=== PATIENT | male | born 1965 | race African-American/Black ===

== ENCOUNTER 2017-07-16 17:45 | Emergency (ER) | payer OTHER ==
[2017-07-16 18:05] VITALS: BP 131/70
[2017-07-16] MEDS ORDERED: Albuterol 2.5 MG/3 ML NEB.SOL* (0.083%) INH ONE (18:13)
[2017-07-16] MEDS ORDERED: PrednisoLONE LIQ 3 MG/ML* 15 MG/5 ML UDC PO ONE (18:13)
--- NOTE | 2017-07-16 18:19 | UC ---
Respiratory Complaint HPI - HPI Summary HPI Summary: 51 year old male presents with complains cough, chest congestion, and sinus congestion. - History of Current Complaint Chief Complaint: UCRespiratory Stated Complaint: CHEST CONGESTION,COUGH Time Seen by Provider: 07/16/17 17:59 Hx Obtained From: Patient Onset/Duration: Sudden Onset Severity Initially: Moderate Severity Currently: Moderate Pain Scale Used: 0-10 Numeric - 5 Alleviating Factors: Bronchodilator Associated Signs And Symptoms: Positive: Wheezing - Allergies/Home Medications Allergies/Adverse Reactions: Allergies Allergy/AdvReac Type Severity Reaction Status Date / Time No Known Allergies Allergy Verified 07/16/17 18:05 Home Medications: Home Medications Dextromethorphan-Phenylephrine [Vicks Dayquil Cold & Flu] 1 cap PO PRN 07/16/17 [History] Glucosamine-Chondroitin [Glucosamine & Chondroitin 500-400 mg] 1 cap PO DAILY [History Confirmed 07/16/17] Ibuprofen TAB* [Advil TAB*] 600 mg PO PRN 07/16/17 [History] Zklcfqrpepsso-Ewxbzmhpmi-[id number] [Nyquil Severe Cold/Flu 5-6.25-10-325 mg/15Ml] 1 liq PO PRN 07/16/17 [History] PMH/Surg Hx/FS Hx/Imm Hx Previously Healthy: Yes - Surgical History Surgical History: Yes Surgery Procedure, Year, and Place: vasectomy; wisdom tooth - Family History Known Family History: Positive: None - Social History Alcohol Use: None Alcohol Amount: NO ETOH 2014 Substance Use Type: None Smoking Status (MU): Never Smoked Tobacco Have You Smoked in the Last Year: No Review of Systems Constitutional: Negative Skin: Negative Eyes: Negative ENT: Negative Respiratory: Cough Cardiovascular: Negative Gastrointestinal: Negative Genitourinary: Negative Motor: Negative Neurovascular: Negative Musculoskeletal: Negative Neurological: Negative Psychological: Negative All Other Systems Reviewed And Are Negative: Yes Physical Exam Triage Information Reviewed: Yes Vital Signs: Initial Vital Signs Temp 39.3 C 07/16/17 18:01 Pulse 122 07/16/17 18:01 Resp 18 07/16/17 18:01 BP 131/70 07/16/17 18:01 Pulse Ox 98 07/16/17 18:01 Vital Signs Reviewed: Yes Eye Exam: Normal ENT Exam: Normal Dental Exam: Normal Neck exam: Normal Neck: Positive: 1 Respiratory: Positive: Decreased breath sounds Cardiovascular Exam: Normal Abdominal Exam: Normal Musculoskeletal Exam: Normal Neurological Exam: Normal Psychological Exam: Normal Skin Exam: Normal UC Diagnostic Evaluation - Laboratory O2 Sat by Pulse Oximetry: 98 Respiratory Course/Dx - Differential Dx/Diagnosis Provider Diagnoses: chest congestion. cough Discharge - Discharge Plan Condition: Stable Disposition: OTHER Discharge Disposition Comment: patient suggested to go to the er Prescriptions: Albuterol HFA INHALER* [Ventolin HFA Inhaler*] 1 puff INH Q6H PRN #1 mdi PRN Reason: Wheezing Azithromyxin DIANE (NF) [Z-Diane (Zithromax) 250 mg tabs #6] 2 tab PO .TODAY, THEN 1 DAILY #6 tab Methylprednisolone [Medrol Dosepak 4 MG*] 4 mg PO .SEE DIANE INSTRUCTION #21 tab Patient Education Materials: Acute Cough (ED), Wheezing (ED) Referrals: Gilmer Luna MD [Primary Care Provider] - Additional Instructions: patient suggested to go to the er for elevated temp > 103 with tylenol.
[2017-07-16] MEDS ORDERED: predniSONE TAB* 20 MG PO ONE (18:23)
--- NOTE | 2017-07-16 18:33 | RAD ---
INDICATION: Cough and congestion COMPARISON: None TECHNIQUE: PA and lateral views of the chest were obtained. FINDINGS: The heart and mediastinum are normal in size and contour. The lungs are grossly clear. There is no evidence of large pleural effusion. Visualized bones are normal for the patient's age. There is no radiographic evidence of free air beneath the diaphragm IMPRESSION: No radiographic evidence of acute cardiopulmonary disease.
== END 2017-07-16 18:55 ==
LOC: UCEAST 17:45
DX: R05 Cough (principal); R09.89 Other specified symptoms and signs involving the circulatory and respiratory systems
CPT/HCPCS: 71020; 99212; G0463; J7512

== ENCOUNTER 2017-07-16 19:12 | Emergency (ER) | payer OTHER ==
[2017-07-16] MEDS ORDERED: Clarithromycin TAB* 500 MG PO ONE (20:13)
[2017-07-16] MEDS ORDERED: Oseltamivir CAP* 75 MG PO ONE (21:14)
[2017-07-16] MEDS ORDERED: guaiFENesin/CODIEN 100MG-10MG* 5 ML UDC PO ONE (21:14)
--- NOTE | 2017-07-16 21:22 | ED ---
Opal Vazquez Julia, scribed for Maico Shipley MD on 07/16/17 at 1950 . HPI Febrile Illness - HPI Summary HPI Summary: This patient is a 51 year old M BIBA to [facility] accompanied by his with a chief complaint of fever since yesterday morning. The patient rates the pain 5/ 10 in severity. Symptoms aggravated by nothing. Symptoms alleviated by nothing. Patient reports a productive cough with chest pain. reports previous episodes of similar symptoms that have worsened today. Patient reports that he is currently feeling better. - History of Current Complaint Chief Complaint: EDFever Time Seen by Provider: 07/16/17 19:47 Hx Obtained From: Patient, Family/Backup Operator Onset/Duration: Started Days Ago Timing: Constant Pain Intensity: 5 Pain Scale Used: 0-10 Numeric Aggravating Factors: Nothing Alleviating Factors: Nothing Associated Signs and Symptoms: Other: - productive cough with chest pain - Allergy/Home Medications Allergies/Adverse Reactions: Allergies Allergy/AdvReac Type Severity Reaction Status Date / Time No Known Allergies Allergy Verified 07/16/17 18:05 PMH/Surg Hx/FS Hx/Imm Hx Cardiovascular History: Denies: Hx Hypertension Respiratory History: Reports: Other Respiratory Problems/Disorders - HX PNEUMONIA - Surgical History Surgery Procedure, Year, and Place: vasectomy; wisdom tooth Infectious Disease History: No Infectious Disease History: Denies: Hx Clostridium Difficile, Hx Hepatitis, Hx Human Immunodeficiency Virus (HIV), Hx of Known/Suspected MRSA, Hx Shingles, Hx Tuberculosis, Hx Known/ Suspected VRE, Hx Known/Suspected VRSA, History Other Infectious Disease, Traveled Outside the [place] in Last 30 Days - Family History Known Family History: Negative: Diabetes - Social History Alcohol Use: None Alcohol Amount: NO ETOH 2014 Hx Substance Use: No Substance Use Type: Reports: None Hx Tobacco Use: No Smoking Status (MU): Never Smoked Tobacco Have You Smoked in the Last Year: No Review of Systems Positive: Fever Positive: Chest Pain Positive: Cough - productive All Other Systems Reviewed And Are Negative: Yes Physical Exam - Summary Physical Exam Summary: Appearance: The patient is well-nourished in no acute distress and in no acute pain. Skin: The skin is warm and dry and skin color reflects adequate perfusion. HEENT: The head is normocephalic and atraumatic. The pupils are equal and reactive. The conjunctivae are clear and without drainage. Nares are patent and without drainage. Mouth reveals moist mucous membranes and the throat is without erythema and exudate. The external ears are intact. The ear canals are patent and without drainage. The tympanic membranes are intact. Neck: the neck is supple with full range of motion and non-tender. There are no carotid bruits. There is no neck vein distension. Respiratory: Chest is non-tender. Upper airway sounds are coarse. Cardiovascular: Heart is tachycardic with regular rhythm. There is no murmur or rub auscultated. There is no peripheral edema and pulses are symmetrical and equal. Abdomen: The abdomen is soft and non-tender. There are normal bowel sounds heard in all four quadrants and there is no organomegaly palpated. Musculoskeletal: There is no back tenderness noted. Extremities are non-tender with full range of motion. There is good capillary refill. There is no peripheral edema or calf tenderness elicited. Neurological: Patient is alert and oriented to person, place and time. The patient has symmetrical motor strength in all four extremities. Cranial nerves are grossly intact. Deep tendon reflexes are symmetrical and equal in all four extremities. Psychiatric: The patient has an appropriate affect and does not exhibit any anxiety or depression. Triage Information Reviewed: Yes Vital Signs On Initial Exam: Initial Vitals Temp Pulse Resp BP Pulse Ox 99.1 F 116 20 000/00 97 07/16/17 19:14 07/16/17 19:14 07/16/17 19:14 07/16/17 19:14 07/16/17 19:14 Vital Signs Reviewed: Yes - [place] Coma Scale Coma Scale Total: 15 Diagnostics - Vital Signs Vital Signs Temp Pulse Resp BP Pulse Ox 07/16/17 19:38 104 9 94 07/16/17 19:37 122/69 07/16/17 19:14 99.1 F 116 20 000/00 97 - Laboratory Lab Results: Lab Results 07/16/17 Range/Units 20:33 Influenza A (Rapid) Positive H (Negative) Influenza B (Rapid) Negative (Negative) Lab Statement: Any lab studies that have been ordered have been reviewed, and results considered in the medical decision making process. Course/Dx - Course Course Of Treatment: Mr. Bryson felt better when he arrived in the ED. He was not wheezing, borderline tachycardic and his SPO2 was in the mid 90's. He was found to be positive for influenza A and will be treated with tamiflu, guaifenesin with codeine and the inhaler he already has. - Diagnoses Provider Diagnoses: Influenza A Discharge - Discharge Plan Condition: Stable Disposition: HOME Referrals: Gilmer Luna MD [Primary Care Provider] - The documentation as recorded by the Opal pisano Julia accurately reflects the service I personally performed and the decisions made by me, Maico Shipley MD.
[2017-07-16 22:03] VITALS: BP 138/80
== END 2017-07-16 22:28 | disposition home or self-care (01) ==
LOC: ED 19:12
DX: J11.1 Influenza due to unidentified influenza virus with other respiratory manifestations (principal)
CPT/HCPCS: 87502; 99283; A9270-GY

== ENCOUNTER 2018-08-01 13:18 | Emergency (ER) | payer OTHER ==
[2018-08-01 13:26] VITALS: BP 152/83
--- NOTE | 2018-08-01 13:26 | UC ---
Respiratory Complaint HPI - HPI Summary HPI Summary: 52 y/o male presents to the urgent care c/o productive cough w/ yellowish phlegm for the past 3 weeks. Pt reports symptoms started w/ a common cold over the end of year. Pt states he had a similar symptoms last year at the same time and Dx w/ Asthma exacerbation and bronchitis. He has not had any wheezing. He has been taking Nyquill PO to alleviate symptoms. Pt states +PND and cough is keeping him awake at night time for the past 3 days. Pt deneis fever SOB, chest pain, abdominal pain, N/V/D - History of Current Complaint Stated Complaint: CONGESTED,COUGH Time Seen by Provider: 08/01/18 13:23 Hx Obtained From: Patient Onset/Duration: Gradual Onset, Lasting Weeks - 3 weeks, Still Present, Worse Since - 3 days Timing: Intermittent Episodes Severity Initially: Mild Severity Currently: Moderate Pain Intensity: 0 Pain Scale Used: 0-10 Numeric Character: Cough: Productive, Sputum Description: - yellowish Aggravating Factors: Recumbent Position Alleviating Factors: OTC Meds Associated Signs And Symptoms: Positive: URI, Nasal Congestion, Sinus Discomfort. Negative: Fever, Chills, Wheezing - Risk Factors Pulmonary Embolism Risk Factors: Negative Cardiac Risk Factors: Negative Pseudomonas Risk Factors: Negative Tuberculosis Risk Factors: Negative - Allergies/Home Medications Allergies/Adverse Reactions: Allergies Allergy/AdvReac Type Severity Reaction Status Date / Time No Known Allergies Allergy Verified 08/01/18 13:26 Home Medications: Home Medications Glucosam/Chondr/Collagn/Hyalur [Glucosamine & Chondroitin Cap] 1 cap PO DAILY [History Confirmed 08/01/18] PMH/Surg Hx/FS Hx/Imm Hx Previously Healthy: Yes Endocrine History: Dyslipidemia Respiratory History: Asthma, Bronchitis - Surgical History Surgical History: Yes Surgery Procedure, Year, and Place: vasectomy; wisdom tooth - Family History Known Family History: Positive: None - Pt denies FMHX Negative: Diabetes - Social History Occupation: Employed Full-time Lives: With Family Alcohol Use: None Alcohol Amount: NO ETOH 2014 Substance Use Type: None Smoking Status (MU): Never Smoked Tobacco Have You Smoked in the Last Year: No Review of Systems All Other Systems Reviewed And Are Negative: Yes Constitutional: Positive: Negative Skin: Positive: Negative Eyes: Positive: Negative ENT: Positive: Nasal Discharge - yellowish, Sinus Congestion Respiratory: Positive: Cough - productive w/ yellowish phlegm Cardiovascular: Positive: Negative Gastrointestinal: Positive: Negative Genitourinary: Positive: Negative Motor: Positive: Negative Neurovascular: Positive: Negative Musculoskeletal: Positive: Negative Neurological: Positive: Negative Psychological: Positive: Negative Is Patient Immunocompromised?: No Physical Exam - Summary Physical Exam Summary: Vital Signs Reviewed: Yes General: well developed, well nourished male sitting in the examining table w/o any apparent distress Eyes: Positive: Conjunctiva Clear - PERRLA, EOMI, fundi grossly normal ENT: Positive: Normal ENT inspection, Hearing grossly normal, Pharynx normal, Nasal congestion - edematous and erythematous nasal mucosa, Nasal drainage - yellowish drainage, TMs normal. Negative: Tonsillar swelling, Tonsillar exudate Neck: Positive: Supple, Nontender, No Lymphadenopathy Respiratory: no orthopnea or dyspnea. Able to speak in full sentences, no retractions or accessory muscle use, no tripod position, stridor, or head bobbing. Positive breath sounds bilaterally. Mild posterior upper lungs w/ rhonchi, no wheezes, no crackles or rales. Cardiovascular: Positive: RRR, No Murmur, Pulses Normal, Brisk Capillary Refill Abdomen Description: Positive: Nontender, No Organomegaly, Soft. Negative: CVA Tenderness (R), CVA Tenderness (L) Bowel Sounds: Positive: Present Musculoskeletal Exam: Normal Musculoskeletal: Positive: Strength Intact, ROM Intact, No Edema Neurological Exam: Normal Psychological Exam: Normal Skin Exam: Normal Triage Information Reviewed: Yes Respiratory Course/Dx - Course Course Of Treatment: 52 y/o male presents to the urgent care c/o productive cough w/ yellowish phlegm for the past 3 weeks. Pt reports symptoms started w/ a common cold over the end of year. Pt states he had a similar symptoms last year at the same time and Dx w/ Asthma exacerbation and bronchitis. He has not had any wheezing. He has been taking Nyquill PO to alleviate symptoms. Pt states +PND and cough is keeping him awake at night time for the past 3 days. Pt deneis fever SOB, chest pain, abdominal pain, N/V/D. Hx obtained. Pt with Acute bronchitis on examination, O2Sat:98% . Pt Rx Augmentin PO and Tessalon POto alleviate symptoms. Pt advised to increase fluid intake and eat well. if not improvement or worsening of symptoms to return to the urgent care or f/u with PCP for further management. Pt's BP is elevated today advised to decrease salt in diet, monitor BP and f/u with PCP for further management. D/C instructions explaiend. Pt understood and agreed with plan of care. - Differential Dx/Diagnosis Differential Diagnosis/HQI/PQRI: Asthma, Bronchitis, Influenza, Laryngitis, Lower Resp Infection, Sinusitis Provider Diagnosis: Bronchitis, Cough, Elevated BP without diagnosis of hypertension Discharge - Sign-Out/Discharge Documenting (check all that apply): Patient Departure - D/C home All imaging exams completed and their final reports reviewed: No Studies - Discharge Plan Condition: Stable Disposition: HOME Prescriptions: Amoxicillin/Clavulanate TAB* [Augmentin TAB 875*] 875 mg PO BID #14 tab Benzonatate CAP* [Tessalon 100 MG CAP*] 100 mg PO TID PRN #21 cap PRN Reason: Cough Patient Education Materials: Acute Bronchitis (ED), Low-Sodium Diet (ED) Referrals: Cyrus Pan MD [Primary Care Provider] - 3 Days Additional Instructions: 1-Please take full course of antibiotic to avoid resistance. 2-Take Tessalon PO tabs as directed to alleviate cough. Increase fluid intake, rest and eat well. 3- If symptoms do not improve or worsen or your develop SOB with fever and severe wheezing please return to the urgent care or go immediately to the ER further evaluation and treatment. 4- F/u with your PCP in 3 days for further management if not improvement of symptoms. - Billing Disposition and Condition Condition: STABLE Disposition: Home
== END 2018-08-01 13:42 | disposition home or self-care (01) ==
LOC: UCEAST 13:18
DX: J40 Bronchitis, not specified as acute or chronic (principal); R03.0 Elevated blood-pressure reading, without diagnosis of hypertension
CPT/HCPCS: 99212; G0463